=== PATIENT | female | born 1990 | race African-American/Black ===

== ENCOUNTER 2019-01-28 18:52 | Emergency (ER) | payer MEDICAID ==
--- NOTE | 2019-01-28 19:56 | NUR ---
PT CALLED TO BE TRIAGED. PATIENT LEFT WITHOUT BEING SEEN BY ER PROVIDER. NO FURTHER CARE PROVIDED FOR PATIENT.
== END 2019-01-28 19:56 | disposition left against medical advice (07) ==
LOC: MED 18:52
DX: Z53.21 Procedure and treatment not carried out due to patient leaving prior to being seen by health care provider (principal)

== ENCOUNTER 2019-01-29 17:29 | Emergency (ER) | payer MEDICAID ==
[~2019-01-29] VITALS: Ht 149.9 cm; Wt 66.7 kg
[2019-01-29 17:50] VITALS: BP 146/79
--- NOTE | 2019-01-29 17:52 | NUR ---
PT TRIAGED AND SENT TO ER LOBBY
--- NOTE | 2019-01-29 18:30 | NUR ---
PT TO XRAY WITH TECH
--- NOTE | 2019-01-29 18:59 | NUR ---
PT AMBULATED TO [facility]
--- NOTE | 2019-01-29 19:00 | NUR ---
ASSUMED CARE OF PT AT THIS TIME. C/O LEFT 3RD FINGER SWELLING AND PAIN X 1 WEEK. AAOX4 WITH EVEN AND STEADY GAIT; PATIENT STATES PAIN OF 8/10; VSS; PATIENT POSITIONED FOR COMFORT; ER MD MADE AWARE OF PT STATUS. WILL CONTINUE TO MONITOR.
[2019-01-29] MEDS ORDERED: KETOROLAC 30 MG/ML VIAL IM ONE (19:20)
[2019-01-29] MEDS ORDERED: cefTRIAXone 250 MG in LIDOCAINE MPF 1% - 5 mL VIAL 0.9 ML IM ONE (19:20)
[2019-01-29 19:45] VITALS: BP 146/79
--- NOTE | 2019-01-29 19:45 | NUR ---
Patient discharged with v/s stable. Written and verbal after care instructions given and explained. Patient alert, oriented and verbalized understanding of instructions. Ambulatory with steady gait. All questions addressed prior to discharge. ID band removed. Patient advised to follow up with PMD. Rx of MUPIROCIN, NAPROXEN, AND KEFLEX given. Patient educated on indication of medication including possible reaction and side effects. Opportunity to ask questions provided and answered.
== END 2019-01-29 19:45 | disposition home or self-care (01) ==
LOC: MED 17:29
DX: L03.012 Cellulitis of left finger (principal)
CPT/HCPCS: 73140; 96372; 99283; J0696; J1885; J2001

== ENCOUNTER 2019-03-27 06:25 | Emergency (ER) | payer MEDICAID ==
[~2019-03-27] VITALS: Ht 149.9 cm; Wt 83.1 kg
[2019-03-27 06:31] VITALS: BP 122/72
--- NOTE | 2019-03-27 06:31 | NUR ---
PT TAKEN TO BED 12
--- NOTE | 2019-03-27 06:35 | NUR ---
29 YO F BIB SELF C/O 05/06 LOWER CRAMPING ABD PAIN ACCOMPANIED BY NAUSEA X 2 HOURS. PT STATES SHE IS 9 WEEKS . LMP: 01/14. DENIES VAGINAL BLEEDING AND URINARY BURNING. PT STATES SHE IS "EXTRA NERVOUS ABOUT ANY PAIN" BECAUSE SHE HAD A STILL IN 09/2018. PT ADMITS TO SMOKING CIGARETTES- "A COUPLE PUFFS" EVERY 6 HOURS. -- PT IS CALM, COOPERATIVE, BEHAVIOR APPROPRIATE. -- SKIN PINK, DRY, WARM. BREATHING EVEN, UNLABORED. -- ABD IS SOFT, NON-TENDER. BOWEL SOUNDS ACTIVE. LAST BM: YESTERDAY. PMH-- DENIES RX-- VITAMINS PT POSITIONED FOR COMFORT. HOB ELEVATED. SIDE RAIL UP X1. BED IN LOWEST POSITION. VSS. NO APPARENT DISTRESS AT THIS TIME.
--- NOTE | 2019-03-27 06:43 | NUR ---
Dr. Jenkins evaluating patient at bedside.
--- NOTE | 2019-03-27 06:48 | NUR ---
PHLEB AT BEDSIDE FOR LAB DRAWS
--- NOTE | 2019-03-27 06:51 | NUR ---
Ultrasound at bedside.
[2019-03-27 07:04] LABS: BASOPHILS % (AUTO) 0.3 % (0.0-2.0); EOSINOPHILS # (AUTO) 0.2 K/uL (0-0.4); EOSINOPHILS % (AUTO) 1.7 % (0.0-4.0); HEMATOCRIT 37.5 % (36-48); HEMOGLOBIN 12.5 g/dL (12.0-16.0); LYMPHOCYTES # (AUTO) 1.5 K/uL (2.5-16.5); LYMPHOCYTES % (AUTO) 16.1 % (20.5-51.1); MEAN CORPUSCULAR HEMOGLOBIN 32 pg (27-31); MEAN CORPUSCULAR HGB CONC 33 g/dL (33-37); MEAN CORPUSCULAR VOLUME 96.1 fL (80-94); MONOCYTES # (AUTO) 0.4 K/uL (0.8-1.0); MONOCYTES % (AUTO) 4.6 % (1.7-9.3); NEUTROPHILS # (AUTO) 7.4 K/uL (1.8-7.7); NEUTROPHILS % (AUTO) 77.3 % (42.2-75.2); PLATELET COUNT (AUTO) 338 K/uL (140-450); RED BLOOD CELL COUNT(AUTO) 3.91 MIL/uL (4.20-5.40); RED CELL DISTRIBUTION WIDTH 13.2 % (11.6-13.7); WHITE BLOOD COUNT (AUTO) 9.5 K/uL (4.8-10.8)
[2019-03-27 07:11] LABS: BILIRUBIN,URINE 1+ (NEGATIVE); BLOOD, URINE NEGATIVE (NEGATIVE); COLOR,URINE YELLOW (YELLOW); LEUKOCYTE ESTERASE ,URINE NEGATIVE (NEGATIVE); NITRITE, URINE NEGATIVE (NEGATIVE); UGLUCOSE NEGATIVE (NEGATIVE)
[2019-03-27 07:12] LABS: ANION GAP 9.8 (8-16); CARBON DIOXIDE 26.2 mmol/L (21-32); CREATININE 0.8 mg/dL (0.6-1.3)
[2019-03-27 07:18] LABS: ALBUMIN 3.3 g/dL (3.4-5.0); TOTAL BILIRUBIN 0.4 mg/dL (0.0-1.0)
--- NOTE | 2019-03-27 07:18 | NUR ---
REPORT GIVEN TO TIFFANIE VELIZ.
--- NOTE | 2019-03-27 07:19 | NUR ---
REPORT RECIEVED FROM TIFFANIE MARI. TRANSFER OF CARE AT THIS TIME.
[2019-03-27 07:20] LABS: APPEARANCE,URINE SLIGHTLY HAZY (CLEAR)
[2019-03-27 07:21] LABS: RBC,URINE NONE SEEN /HPF (0-5); WBC,URINE 0-5 /HPF (0-5)
--- NOTE | 2019-03-27 07:51 | NUR ---
Dr. Oliver evaluating patient at bedside.
--- NOTE | 2019-03-27 08:01 | NUR ---
Patient discharged with v/s stable. Written and verbal after care instructions given and explained. SMOKING CESSATION INFORMATION PROVIDED Patient verbalized understanding. Ambulatory with steady gait. All questions addressed prior to discharge. Advised to follow up with PMD.
[2019-03-27 08:03] VITALS: BP 122/72
== END 2019-03-27 08:01 | disposition home or self-care (01) ==
LOC: MED 06:25
DX: O26.891 Other specified pregnancy related conditions, first trimester (principal); R10.9 Unspecified abdominal pain; Z3A.10 10 weeks gestation of pregnancy
CPT/HCPCS: 36415; 76801; 80053; 81001; 84702; 85025; 86900; 86901; 99284; Q0092

== ENCOUNTER 2019-04-04 05:32 | Emergency (ER) | payer MEDICAID ==
[~2019-04-04] VITALS: Ht 149.9 cm; Wt 83.0 kg
[2019-04-04 05:38] VITALS: BP 129/75
--- NOTE | 2019-04-04 05:46 | NUR ---
PT AMBULATED TO THE RESTROOM AND THEN TO BED #12
--- NOTE | 2019-04-04 05:46 | NUR ---
PT PRESENTS TO ER, C/O PELVIC PAIN/CRAMPING X 8 HOURS. PT IS 10 WEEKS . PT HAS HAD SOME MILD BLEEDING/SPOTTING. BLEEDING CONTROLLED AT THIS TIME. A&O WITH VSS. POSITIONED IN BED FOR COMFORT. ER MD AWARE. CONTINUE TO MONITOR.
[2019-04-04 06:24] LABS: POTASSIUM 3.6 mmol/L (3.5-5.1)
[2019-04-04 06:25] LABS: ANION GAP 13.7 (8-16); CARBON DIOXIDE 24.9 mmol/L (21-32); CREATININE 0.7 mg/dL (0.6-1.3)
[2019-04-04 06:26] LABS: TOTAL BILIRUBIN 0.4 mg/dL (0.0-1.0)
[2019-04-04 06:27] LABS: ALBUMIN 3.1 g/dL (3.4-5.0)
[2019-04-04 06:52] LABS: BASOPHILS % (AUTO) 0.2 % (0.0-2.0); EOSINOPHILS # (AUTO) 0.2 K/uL (0-0.4); EOSINOPHILS % (AUTO) 1.7 % (0.0-4.0); HEMATOCRIT 35.8 % (36-48); HEMOGLOBIN 12.2 g/dL (12.0-16.0); LYMPHOCYTES # (AUTO) 1.7 K/uL (2.5-16.5); LYMPHOCYTES % (AUTO) 16.4 % (20.5-51.1); MEAN CORPUSCULAR HEMOGLOBIN 33 pg (27-31); MEAN CORPUSCULAR HGB CONC 34 g/dL (33-37); MEAN CORPUSCULAR VOLUME 95.9 fL (80-94); MONOCYTES # (AUTO) 0.4 K/uL (0.8-1.0); NEUTROPHILS # (AUTO) 8.2 K/uL (1.8-7.7); NEUTROPHILS % (AUTO) 77.7 % (42.2-75.2); PLATELET COUNT (AUTO) 298 K/uL (140-450); RED BLOOD CELL COUNT(AUTO) 3.74 MIL/uL (4.20-5.40); WHITE BLOOD COUNT (AUTO) 10.6 K/uL (4.8-10.8)
--- NOTE | 2019-04-04 07:05 | NUR ---
Ultrasound at bedside.
[2019-04-04 07:23] VITALS: BP 122/72
[2019-04-04 08:54] LABS: APPEARANCE,URINE CLEAR (CLEAR); BILIRUBIN,URINE NEGATIVE (NEGATIVE); BLOOD, URINE NEGATIVE (NEGATIVE); COLOR,URINE YELLOW (YELLOW); LEUKOCYTE ESTERASE ,URINE NEGATIVE (NEGATIVE); NITRITE, URINE NEGATIVE (NEGATIVE); UGLUCOSE NEGATIVE (NEGATIVE)
== END 2019-04-04 07:20 | disposition home or self-care (01) ==
LOC: MED 05:32
DX: O20.0 Threatened abortion (principal); Z3A.12 12 weeks gestation of pregnancy
CPT/HCPCS: 36415; 76817; 80053; 81003; 84702; 85025; 86900; 86901; 99284; Q0092

== ENCOUNTER 2019-05-20 14:25 | Emergency (ER) | payer MEDICAID ==
[~2019-05-20] VITALS: Ht 154.9 cm; Wt 84.1 kg
[2019-05-20 14:29] VITALS: BP 132/75
--- NOTE | 2019-05-20 14:58 | NUR ---
16 WKS LMP 01/06/19 C/O LOWER ABD CRAMPING. DENIES VAGINAL BLEEDING OR DISCHARGE, N/V/RECENT ILLNESS/INJURY. CRAMPING STARTED LAST NIGHT, PAIN 5/10 & INTERMITTENT. HEART TONES ASSESSED AT 150BPM IN LRQ. DENIES DYSURIA/FREQUENCY/URGENCY. PT HAX HX OF LABOR RESULTING IN STILLBIRTH AT 26 WEEKS IN SEP 2018. PT IS CONCERNED AND WANTS TO MAKE SURE BABY IS OKAY. BED IN LOW POSITION, SIDE RAIL UP X1. PROVIDED PT WITH BLANKET FOR COMFORT.
--- NOTE | 2019-05-20 15:00 | NUR ---
DR. MAGDALENO AT BEDSIDE EVALUATING PT
--- NOTE | 2019-05-20 16:08 | NUR ---
PT RESTING IN BED, NO NEW NEEDS AT THIS TIME
[2019-05-20 16:59] VITALS: BP 127/70
--- NOTE | 2019-05-20 16:59 | NUR ---
Patient discharged with v/s stable. Written and verbal after care instructions given and explained. Patient verbalized understanding. Ambulatory with steady gait. All questions addressed prior to discharge. Advised to follow up with PMD.
== END 2019-05-20 16:59 | disposition home or self-care (01) ==
LOC: MED 14:25
DX: O20.0 Threatened abortion (principal); Z3A.17 17 weeks gestation of pregnancy; Z87.59 Personal history of other complications of pregnancy, childbirth and the puerperium
CPT/HCPCS: 76815; 81002; 99284; Q0092

== ENCOUNTER 2019-08-04 19:10 | Emergency (ER) | payer OTHER, MEDICAID ==
[~2019-08-04] VITALS: Ht 149.9 cm; Wt 86.2 kg
[2019-08-04 19:22] VITALS: BP 131/67
--- NOTE | 2019-08-04 19:35 | NUR ---
29 Y/O FEMALE BIB SELF. 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 PT IS 27 WEEKS . STATES NO ABD PAIN NOW AND NO FURTHER BLEEDING. PT STILL HAS + MOVEMENT.PATIENT HAD A STILL FOR HER FIRST . PAIN IS A 0/10. ER MD MADE AWARE OF STATUS. SIDE RAILS X1 AND PLACED ON MONITOR. PMH:DENIES RX:DENIES NKDA
--- NOTE | 2019-08-04 19:43 | NUR ---
PT TAKEN TO L AND D VIA WHEELCHAIR.
--- NOTE | 2019-08-04 21:13 | NUR ---
PER L AND D NURSE, PT HAS HAD NO CONTRACTIONS , HEART RATE HAS NO DECELARATIONS, PT DOES NOT HAVE ANY VAGINAL BLEEDING, WILL COME BACK TO ER.
--- NOTE | 2019-08-04 21:20 | NUR ---
PT RETURNED FROM L AND D TO CHAIR B.
--- NOTE | 2019-08-04 21:39 | NUR ---
Patient does not wish to proceed with medical care recommended by DR SHEA. Patient given information related to possible complications, up to and including , which could occur as a result of leaving hospital at this time. Patient verbalizes understanding of risks involved leaving against medical advice. Patient has signed AMA form. PT GIVEN D/C INSTRUCTIONS, AND NOTE FOR WORK .
[2019-08-04 21:45] VITALS: BP 131/67
== END 2019-08-04 21:39 | disposition left against medical advice (07) ==
LOC: MED 19:10 → MLD 19:43 → UNDOADMOB 20:30 → MED 20:49
DX: O26.853 Spotting complicating pregnancy, third trimester (principal); Z3A.29 29 weeks gestation of pregnancy
CPT/HCPCS: 99281; 99283

== ENCOUNTER 2019-10-16 11:50 | Observation (INO) | payer OTHER, MEDICAID ==
[~2019-10-16] VITALS: Ht 149.9 cm; Wt 94.3 kg
[2019-10-16 12:10] VITALS: BP 132/61
[2019-10-16] MEDS ORDERED: FERR-252 PO (13:10)
[2019-10-16] MEDS ORDERED: PREN-380 PO (13:10)
== END 2019-10-16 13:15 | disposition home or self-care (01) ==
LOC: MLD 11:50
PROVIDERS: ADMIT Obstetrics & Gynecology; ATTEND Obstetrics & Gynecology
DX: O36.8130 Decreased fetal movements, third trimester, not applicable or unspecified (principal); O99.334 Smoking (tobacco) complicating childbirth; F17.200 Nicotine dependence, unspecified, uncomplicated; Z3A.39 39 weeks gestation of pregnancy
CPT/HCPCS: 81000; G0378

== ENCOUNTER 2021-10-15 16:45 | Emergency (ER) | payer MEDICAID ==
[~2021-10-15] VITALS: Ht 154.9 cm; Wt 87.5 kg
[~2021-10-15 16:45] MED LIST: FERR-252 PO; PREN-380 PO
[2021-10-15 17:13] VITALS: BP 145/72
[2021-10-15] MEDS ORDERED: ONDANSETRON 4 MG/2 ML VIAL IVP ONE (18:45)
[2021-10-15] MEDS ORDERED: DICYCLOMINE HCL LIQUID 20 MG, ALUMINUM HYD/MAG/SIMETHICONE 30 ML, LIDOCAINE VISCOUS 2% ... PO ONE ×3 (18:45)
[2021-10-15] MEDS ORDERED: KETOROLAC 30 MG/ML VIAL IVP ONE (18:45)
[2021-10-15] MEDS ORDERED: NACL 0.9% 1,000 ML IV ONE (18:45)
[2021-10-15 19:04] LABS: BASOPHILS # (AUTO) 0.1 K/uL (0.00-0.22); BASOPHILS % (AUTO) 1.1 % (0.0-2.0); EOSINOPHILS # (AUTO) 0.9 K/uL (0-0.4); EOSINOPHILS % (AUTO) 13.5 % (0.0-4.0); HEMATOCRIT 40.3 % (36-48); HEMOGLOBIN 13.4 g/dL (12.0-16.0); LYMPHOCYTES % (AUTO) 29.4 % (20.5-51.1); MEAN CORPUSCULAR HEMOGLOBIN 32 pg (27-31); MEAN CORPUSCULAR HGB CONC 33 g/dL (33-37); MEAN CORPUSCULAR VOLUME 95.9 fL (80-94); MONOCYTES # (AUTO) 0.3 K/uL (0.8-1.0); NEUTROPHILS # (AUTO) 3.6 K/uL (1.8-7.7); PLATELET COUNT (AUTO) 327 K/uL (140-450); RED BLOOD CELL COUNT(AUTO) 4.21 MIL/uL (4.20-5.40); RED CELL DISTRIBUTION WIDTH 14.6 % (11.6-13.7); WHITE BLOOD COUNT (AUTO) 6.9 K/uL (4.8-10.8)
[2021-10-15 19:08] LABS: APPEARANCE,URINE CLEAR (CLEAR); BILIRUBIN,URINE NEGATIVE (NEGATIVE); BLOOD, URINE NEGATIVE (NEGATIVE); LEUKOCYTE ESTERASE ,URINE NEGATIVE (NEGATIVE); NITRITE, URINE NEGATIVE (NEGATIVE); UGLUCOSE NEGATIVE (NEGATIVE)
[2021-10-15 19:11] LABS: COLOR,URINE YELLOW (YELLOW)
[2021-10-15 19:20] LABS: CARBON DIOXIDE 26.5 mmol/L (21-32); CREATININE 0.8 mg/dL (0.6-1.3); POTASSIUM 3.5 mmol/L (3.5-5.1); TOTAL BILIRUBIN 0.5 mg/dL (0.0-1.0)
[2021-10-15] MEDS ORDERED: ALUMINUM HYD/MAG/SIMETHICONE 30 ML UDC ONE (19:26)
[2021-10-15] MEDS ORDERED: DICYCLOMINE HCL LIQUID 10 MG/5 ML UDC ONE (19:26)
[2021-10-15] MEDS ORDERED: ONDA-188 SL (21:09)
[2021-10-15] MEDS ORDERED: BEN10 PO (21:09)
[2021-10-15] MEDS ORDERED: FAMO-92 PO (21:09)
[2021-10-15 21:51] VITALS: BP 145/72
== END 2021-10-15 21:51 | disposition home or self-care (01) ==
LOC: MED 16:45
DX: R10.13 Epigastric pain (principal); R11.2 Nausea with vomiting, unspecified; R14.0 Abdominal distension (gaseous); Z98.890 Other specified postprocedural states; Z79.899 Other long term (current) drug therapy
CPT/HCPCS: 36415; 76705; 80053; 81003; 81025; 83690; 85025; 96361; 96374; 96375; 99284; J1885; J2405; Q0092; J7030